=== PATIENT | female | born 1950 | race Caucasian/White ===

== ENCOUNTER 2016-12-01 12:10 | Inpatient (IN) | payer BC ==
--- NOTE | ~2016-12-01 | HP ---
History And Physical [place] [id number] [facility] [place]. [address] NAME: CLARE MORFIN : 48 STATUS : ADM IN PAT#: [id number] AGE: 65 ADM/REG DATE : 12/01/16 MR#: [id number] REPORT SERV DATE: 12/01/16 DICTATED BY: DORA CAMACHO IV DATE: 12/01/16 REPORT STATUS : Draft TRANSCRIBED BY: MODHernandez DATE: 12/01/16 DATE OF ADMISSION: 12/01/2016 REASON FOR ADMISSION: 1. Acute hypercapnic respiratory failure. 2. COPD exacerbation. 3. Bronchiectasis. 4. Pneumonia. 5. Mediastinal adenopathy. HISTORY OF PRESENT ILLNESS: History was obtained from the records and from the patient. Ms. Morfin is a 65-year-old female with a history of oxygen dependent COPD; paroxysmal atrial fibrillation; obstructive sleep apnea, on CPAP; tobacco dependency; hypothyroidism; anxiety disorder; and mediastinal adenopathy on previous chest CT scan, who presents with one week of increased shortness of breath with cough productive of yellowish phlegm, three weeks of headaches, and one month of hoarseness. The patient previously was followed by Dr. Desai in [place], more recently by Dr. Mejia. She has oxygen-dependent COPD with previous pulmonary function studies noting mixed disease, though with no specific FEV1's were provided. She is on 3 L supplemental oxygen chronically with exercise tolerance of less than 50 feet. Her exercise tolerance has worsened over the last few months. She has noted hoarseness, which has progressed over the last month without symptoms of reflux disease. There is no dysphagia. She has developed a headache, worse in the morning. Over the last three weeks, it waxes and wanes. She has noted increased shortness of breath and cough productive of yellowish phlegm over the last week despite compliance with her bronchodilator medications. She has nebulizers, she uses four times a day and Breo Ellipta, which she uses daily. Because of progressive symptoms, she sought evaluation in the emergency room, where she was found to be in moderate respiratory distress with hypercapnia. She was placed on BiPAP with symptomatic improvement. She denies fevers, chills, sweats, or hemoptysis. We asked to assist in her care. The patient carries a diagnosis of obstructive sleep apnea, which is reportedly mild. She is currently on CPAP at 11, however, previous titration noted adequacy at 8, which was increased because of persistent hypoxemia. PULMONARY HISTORY: Remarkable for childhood asthma as well as adult COPD. She has had pneumonia in the past. She had a 40-pack year smoking history, currently a half a pack cigarettes a day. 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 She is reportedly up to date on her immunizations. PAST MEDICAL HISTORY: 1. Oxygen-dependent COPD. 2. Paroxysmal atrial fibrillation. 3. Obstructive sleep apnea, on CPAP. 4. Tobacco dependency. 5. Hypothyroidism. 6. Anxiety disorder. 7. Mediastinal adenopathy. History And Physical [address] [address] NAME: CLARE MORFIN : [birth year] STATUS : ADM IN [facility]ED WITH [facility]#: [id number] AGE: 65 ADM/REG DATE : 12/01/16 MR#: [id number] REPORT SERV DATE: 12/01/16 DICTATED BY: DORA CAMACHO IV DATE: 12/01/16 REPORT STATUS : Draft TRANSCRIBED BY: ELENA DATE: 12/01/16 8. Left basilar bronchiectasis, on previous CT scans from [facility]. SURGERIES: 1. Bilateral tubal ligation. 2. Hysterectomy. 3. Cataract surgery. 4. Partial thyroidectomy. ALLERGIES: LISTED ARE CLAVULANIC FROM AUGMENTIN AND EPHEDRINE. OUTPATIENT MEDICATIONS: Include Tylenol p.r.n.; ProAir and Proventil nebulizer as needed; vitamin C and vitamin D daily; doxycycline 100 mg twice a day, which she just started; flecainide 100 mg q.12 hours; Breo Ellipta 100 daily; Lasix 40 mg daily; Synthroid 112 mcg daily; Lopressor 100 mg twice a day; Centrum daily; potassium daily; Shaun-24 600 mg at bedtime; Jantoven 2 mg daily; Cardizem 90 mg q.12 hours. SOCIAL HISTORY: Remarkable for the tobacco use as above. She denies alcohol or illicit drug use. She is , has three children. FAMILY HISTORY: Remarkable for father who was an alcoholic. Mother who had ovarian carcinoma. One sister with mesothelioma, two other sisters with lung cancer, and one with COPD. REVIEW OF SYSTEMS: 14 systems reviewed. Pertinent positives as noted above. PHYSICAL EXAMINATION: GENERAL: This is an obese, pleasant, elderly female, on BiPAP. VITAL SIGNS: Temperature is 98, respiratory rate is 20, saturations are 98% on BiPAP, blood pressure 115/64, and pulse is 80. HEENT: Patient is normocephalic, atraumatic. Extraocular movements are intact. Pupils react to light. Sclerae and conjunctivae normal. She has upper dentures with two teeth on her lower jaw with gingival disease. She has a Mallampati III to IV airway with narrowing of the posterior pharyngeal space. NECK: Without any palpable lymphadenopathy or thyromegaly. CHEST: The patient has had decreased breath sounds symmetrically. There is a prolonged expiratory phase. No crackles, wheezes, or rhonchi are noted. CARDIOVASCULAR: Jugular venous pulsations are difficult to elicit. She has 1+ carotid upstrokes. No obvious bruit. She has a distant regular S1, S2 with no clear murmur, S3, S4. Peripheral pulses are diminished. ABDOMEN: Obese, soft, and nontender. There are hypoactive bowel sounds. There is no palpable hepatosplenomegaly or masses. EXTREMITIES: Demonstrate no cyanosis, clubbing, edema, or palpable cords. NEUROLOGIC: The patient is able to move all extremities. Strength is 5/5 and sensation intact to light touch. Of note, she does have the hoarseness when speaking to her as noted. LABORATORY DATA: Chest x-ray demonstrates a rotated film. There is a left AP window mass History And Physical [address] [address] NAME: CLARE MORFIN : 48 STATUS : ADM IN [facility]ED WITH [facility]#: [id number] AGE: 65 ADM/REG DATE : 12/01/16 MR#: [id number] REPORT SERV DATE: 12/01/16 DICTATED BY: DORA CAMACHO IV DATE: 12/01/16 REPORT STATUS : Draft TRANSCRIBED BY: ELENA DATE: 12/01/16 noted on chest radiograph. This correlates with enlarging lymph node noted on a February to June CT scan. There was a bronchiectasis on the previous CT scans with an infiltrate at the right base, which is new compared to previous studies. Chemistry: Sodium 141, potassium 4.1, chloride 99, bicarb 33, BUN 16, creatinine 0.86, glucose of 131, calcium is 9.3, and albumin is 2.7. Liver panel is otherwise unremarkable. Initial blood gas was pH 7.31, pCO2 of 60, PO2 of 56. Repeat blood gas on BiPAP, pH 7.42, pCO2 of 47, PO2 of 109. CBC: Hemoglobin 14.9, hematocrit 46.6, platelet count was 337,000, white cell count 24.6. No INR's have been obtained. The flu screen was negative. ASSESSMENT AND PLAN: 1. Respiratory. Concern about malignancy with her chest radiograph, her headache, and hoarseness. Solu-Medrol given 40 mg twice a day. Nebulizers will be given with Brovana and Pulmicort both twice a day, with unit dose Brovana and Pulmicort 1 mg; DuoNebs will be given q.4 hours. BiPAP will be adjusted to 15/7, which is near her previous settings with a rate of 10. She will use it at night and with breaks during the day as tolerated. The patient has bronchiectasis, which will require adjustments of her antibiotics. Theophylline level be obtained, though held. 2. Infectious Disease. With bronchiectasis, will change the cefepime 1 g q.6 hours. With the flecainide, we will continue the doxycycline 1 mg twice a day to cover atypicals. Urine antigen will be sent for Legionella as well as Pneumococcus. Sputum was sent for Gram stain and culture. 3. Hematologic. We will continue the Coumadin. Check an INR, pharmacy to adjust. Hemoglobin and hematocrit are adequate. 4. Neurologic. Concern about headache with metastatic disease. Head CT scan will be obtained with contrast since we are going to obtain a CT scan of the chest as well. Thiamine will be given 200 mg daily. We will continue the multivitamins. 5. Endocrinologic. Synthroid will be continued. Thyroid functions will be obtained. Insulin sliding scale has been ordered. 6. Cardiovascular. We will decrease the Lopressor dose to 50 mg twice a day. Continue the flecainide. Hold diltiazem for now and hold the Lasix. She will be given gentle hydration at 40 mL an hour with LR. 7. Gastrointestinal. Cardiac diet has been ordered. Protonix to be given for gastrointestinal prophylaxis 40 mg daily. 8. Renal. We will check magnesium and phosphate levels. Electrolyte replacement protocol ordered. 9. Social. Discussed the my current findings in impression. The patient understands she has severe chronic obstructive pulmonary disease. We discussed her wishes if she would decompensate. She wishes to be a DNR. The order has been provided. The patient will be admitted to the CCU under the arc welder service. ANGEL/ELENA Dora Camacho IV, M.D. History And Physical [address] [address] NAME: CLARE MORFIN : 48 STATUS : ADM IN [facility] WITH [facility]#: [id number] AGE: 65 ADM/REG DATE : 12/01/16 MR#: [id number] REPORT SERV DATE: 12/01/16 DICTATED BY: DORA CAMACHO IV DATE: 12/01/16 REPORT STATUS : Draft TRANSCRIBED BY: ELENA DATE: 12/01/16 / [id number] CC: Nay Arreaga IV, MD
--- NOTE | ~2016-12-01 | HP ---
History And Physical [address] [place]. [place]. [address] NAME: CLARE PIRES : 48 STATUS : ADM IN PAT#: [id number] AGE: 65 ADM/REG DATE : 12/01/16 MR#: [id number] REPORT SERV DATE: 12/01/16 DICTATED BY: DORA CAMACHO IV DATE: 12/01/16 REPORT STATUS : Draft TRANSCRIBED BY: MODHernandez DATE: 12/01/16 DATE OF ADMISSION: 12/01/2016 ADDENDUM: TIME SPENT: Critical care time seen is 1425 hours to 1520 hours for 55 minutes of critical care time. ANGEL/ELENA Dora Camacho IV, M.D. / [id number] CC: Nay Arreaga IV, MD
--- NOTE | ~2016-12-01 | DS ---
Discharge Summary [facility] [address] [place]. [address] NAME: CLARE PIRES : 48 STATUS : DIS IN PAT#: [id number] AGE: 65 ADM/REG DATE : 12/01/16 MR#: [id number] REPORT SERV DATE: 12/10/16 DICTATED BY: SÁNCHEZ RUCKER DATE: 12/06/16 REPORT STATUS : Draft TRANSCRIBED BY: MODHernandez DATE: 12/06/16 ADMISSION DATE: 12/01/2016 DISCHARGE DATE: 12/06/2016 REASON FOR ADMISSION: This is a 65-year-old female with a history of COPD and bronchiectasis that was admitted with acute hypercapnic respiratory failure requiring admission to the ICU and BiPAP therapy. DISCHARGE DIAGNOSES: 1. 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 2. Acute on chronic hypoxemic and hypercapnic respiratory failure and chronic obstructive pulmonary disease exacerbation. 3. Pneumonia with history of bronchiectasis. 4. Obstructive sleep apnea, on CPAP. 5. Hypertension. 6. Paroxysmal atrial fibrillation with chronic Coumadin use. 7. Hypothyroid. 8. DNR status. 9. Acute blood loss anemia status post liver biopsy. HOSPITAL COURSE: 1. The patient admitted with acute hypercapnic respiratory failure, COPD exacerbation with a pCO2 of 60, admitted to ICU on BiPAP. The patient would have a CT of the chest performed which would show progressing mediastinal bilateral hilar adenopathy and high suspicion for malignancy, central lung mass or ghazala mass, inferior right hilum with diffuse reticular nodule infiltrates of the right lower lobe suspicious for interstitial spread of malignancy, also would show multifocal hypodense solid appearing liver lesions suspicious for liver metastasis. The patient would be seen by Oncology, and based on appearance, we are predicting small-cell lung cancer. The patient would have a CT-guided biopsy of the liver, and preliminary findings were suggestive of small cell carcinoma. The patient was able to be weaned off BiPAP and back to nasal cannula and was sent out to the floor. After the liver biopsy, Oncology had long discussion with the patient. The patient did not want treatment for her cancer, understood prognosis, had already declared to be DNR code status, and after discussion with Oncology decided to go home with Hospice Services. 2. Pneumonia with bronchiectasis: The patient initially was placed on IV cefepime and oral doxycycline. She has been transitioned to oral Omnicef and will need to be on that through 12/07/2016. Her breathing status is pretty much back to baseline and she is on 2 L nasal cannula. Already has oxygen at home. 3. Paroxysmal atrial fibrillation, on chronic Coumadin. The patient was held on Coumadin until INR less than 1 for her liver biopsy. Given her metastatic cancer and hospice referral, we will discontinue any further Coumadin use. 4. Acute blood loss anemia status post biopsy. The patient's hemoglobin dropped from 13 to 8.8 the day after procedure. We would recheck that afternoon and it had dropped to 8.3 and then rechecked again this morning, and it was down to 7.6, so we have given her a unit of packed red blood cells. She is non-symptomatic for any sort of Discharge Summary [address] [place]. [address] NAME: CLARE PIRES : 48 STATUS : DIS IN PAT#: [id number] AGE: 65 ADM/REG DATE : 12/01/16 MR#: [id number] REPORT SERV DATE: 12/10/16 DICTATED BY: SÁNCHEZ RUCKER DATE: 12/06/16 REPORT STATUS : Draft TRANSCRIBED BY: ELENA DATE: 12/06/16 intraabdominal acute bleed, so just giving the patient a unit of blood to give her some buffer in case she was to have anymore ooze there. She will be going home with Hospice Services. DISCHARGE CONDITION: Stable. DISCHARGE MEDICATIONS: 1. Synthroid 112 mcg p.o. daily. 2. Lopressor 50 mg p.o. b.i.d. 3. Breo Ellipta 100/25 mcg one puff inhaled daily. 4. Potassium chloride 20 mEq p.o. every two days. 5. Lasix 40 mg p.o. every two days. 6. Flecainide 100 mg p.o. b.i.d. 7. Theophylline 600 mg p.o. q.h.s. 8. Albuterol MDI p.r.n. 9. Albuterol nebs q.4 hours p.r.n. 10.Diltiazem 90 mg p.o. b.i.d. 11.Omnicef 300 mg p.o. b.i.d. through 12/07/2016. DISCHARGE PLAN: The patient is discharged home with home hospice, after blood transfusion complete, hospice to admit the patient at home residence. ADA/MODL Sánchez Rucker APN / [id number] CC: Nay Willis MD Nathan Mull IV, M.D. [facility]
--- NOTE | ~2016-12-01 | CN ---
Consultation Report [facility] [address] [place]. [address] NAME: CLAER MORFIN : 48 STATUS : ADM IN PAT#: [id number] AGE: 65 ADM/REG DATE : 12/01/16 MR#: [id number] REPORT SERV DATE: 12/03/16 DICTATED BY: CESARIO ROSE DATE: 12/03/16 REPORT STATUS : Draft TRANSCRIBED BY: MODL DATE: 12/03/16 CONSULTATION DATE OF CONSULTATION: 12/02/2016 REASON FOR CONSULTATION: Bulky mediastinal adenopathy likely cancer. HISTORY OF PRESENT ILLNESS: Ms. Jo Morfin is a 65-year-old woman with oxygen-dependent COPD, paroxysmal AFib, obstructive sleep apnea, tobacco dependency, hypothyroidism, anxiety disorder. She is found to have mediastinal disease back in the summer 2015. Pattern was in the usual distribution. She had a followup three months later showing a slight increase. Dr. Desai was following her previously. 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 The patient reports her breathing significantly worsened, and she came to the emergency room and was found to have a large increase in her disease. She required CPAP initially, but has since stabilized. She had a CT scan today that showed progression of her mediastinal adenopathy and hilar adenopathy. It is a large central lung mass/right hilar mass with likely from a postobstructive process. Also patchy infiltrates in the left upper lobe as well. There were a number of small liver lesions noted, they are likely metastatic sites. CT of the brain was normal, contrasted. The patient's baseline health is pretty limited due to her significant pulmonary disease. She has smoked for 40 years, currently smoking half a pack a day. She lives in [place]. PAST MEDICAL HISTORY: Oxygen-dependent COPD, paroxysmal AFib, obstructive sleep apnea on CPAP, tobacco dependency, hypothyroidism, anxiety disorder, mediastinal adenopathy, partial thyroidectomy, cataract surgery, hysterectomy, bilateral tubal ligation. ALLERGIES: CLAVULANIC, CITRIC ACID, AUGMENTIN, AND EPHEDRINE. HOME MEDICATIONS: Tylenol, ProAir, Proventil, vitamin C, vitamin D, doxycycline, flecainide, Breo, Lasix, Synthroid, Lopressor, centrum, potassium, Shaun-Dur, Jantoven, Cardizem. SOCIAL HISTORY: Again she has had at least a 32-[id number] smoking history, currently smoking half a pack per day. She had previous pulmonary work-related exposures. She is , has three adult children. FAMILY HISTORY: Significant for her sister, who had mesothelioma. Other sister having small cell lung cancer. Another sister with lung cancer, unsure of which type. Her mother had ovarian cancer. REVIEW OF SYSTEMS: Pertinent and positive as per HPI. Negative for fevers, chills, night sweats. Negative for weight loss. Positive for severe shortness of breath, unable to sleep flat. Positive for chest wall pain. Negative for nausea, vomiting, diarrhea, hematochezia, or melena. Negative for neurologic symptoms. Consultation Report [place] [id number] [place]. [address] NAME: LCARE MORFIN : 48 STATUS : ADM IN [facility]#: [id number] AGE: 65 ADM/REG DATE : 12/01/16 MR#: [id number] REPORT SERV DATE: 12/03/16 DICTATED BY: CESARIO ROSE DATE: 12/03/16 REPORT STATUS : Draft TRANSCRIBED BY: ELENA DATE: 12/03/16 PHYSICAL EXAMINATION: VITAL SIGNS: Temperature 98.1, heart rate of 88, BP 145/88. HEENT: Pupils equal, round, reactive. No oral lesions or cervical adenopathy. LUNGS: Show bilateral wheezing with some bronchial breath sounds in both lower lobes. CARDIAC: Regular rate and rhythm. Normal S1, S2. ABDOMEN: Soft, nontender, nondistended. EXTREMITIES: No clubbing. No cyanosis. No edema. NEUROLOGIC: She is alert, oriented, fairly good historian. Follows all discussion very clearly. PSYCHIATRIC: Appears very calm and is taking in the information very readily. LABORATORY DATA: Her creatinine is 0.8, calcium of 8.4, an albumin of 2.1. B12 is normal. Blood analysis now show a mild increase in her white count, post steroid, hemoglobin 11.4. CT scan was personally reviewed and I reviewed her CT chest with the patient and discussed with Dr. Camacho, she had a bulky mediastinal adenopathy as well as multiple hepatic lesions. ASSESSMENT AND PLAN: Clare Morfin is a 65-year-old. I think she likely has a small cell lung cancer spreading to the liver bed, of course a biopsy is needed for this. I reviewed poor prognosis with small cell in general. It is somewhat unusual case given that she had a fairly stable mediastinal appearance for three months. So this made surprises with the biopsy. The patient will need a CT-guided biopsy, requested to do this by Radiology once her INR is less than 1.5. We discussed briefly treatment and plan. She will need palliative chemotherapy. She is unsure whether she will except this or not. We will have further discussions once we know the histology. I will plan an outpatient PET scan as well. DBD/MODL Cesario Rose M.D. / [id number] CC: Nay Arreaga IV, MD
[~2016-12-01 12:10] MED LIST: CARDCD180 PO; CELEXA10 PO; JANTOVEN5 MG PO; L40 PO; LEVAQUIN5T PO; LOP100 PO; MULTIVITAMI1 PO; OS500+D PO; PROAIR HFA INH; PROVENTSOL INH; RYTHMOL150 MG PO; SYMBICORT 160/41 INH INH; SYN112 PO; THEO24300 PO; VITAMIN D1000 UNI1 PO; VITC500 PO
[2016-12-01 12:27] LABS: ALLENS TEST Pos; BE (BASE EXCESS) 1.5 MEQ/L (0 +/- 2.5); CARBOXYHEMOGLOBIN 2.7 % (0-3); DEVICE NC; HCO3 (ACTUAL BICARBONATE) 29.4 MEQ/L (23-27); HEMOBLOGIN CONTENT 14.6 G/DL (12-16); INSTRUMENT SERIAL # 8087; O2 CONTENT 17.5 VOL% (18-24); PCO2 (CO2 TENSION) 60 MMHG (35-45); PO2 (O2 TENSION) 56 MMHG (79-93); SAMPLE Arterial; pH 7.31 (7.37-7.43)
[2016-12-01 12:36] LABS: BASOPHILS 0 %; BASOPHILS ABSOLUTE 0.01 10/3/uL (0.0-0.16); EOSINOPHILS 0 %; IMMATURE GRANULOCYTES 0.4 %; LYMPHOCYTES 3.7 %; MEAN CORPUSCULAR HEMOGLOB 31.2 pg (26.0-34.0); MEAN CORPUSCULAR VOLUME 97.7 fL (80-100); MEAN PLATELET VOLUME 9.1 fL (9.2-13.0); MONOCYTES 4.3 %; MONOCYTES ABSOLUTE 1.05 10/3/uL (0.21-1.20); NEUTROPHILS 91.6 %; NEUTROPHILS ABSOLUTE 22.56 10/3/uL (2.02-8.40); RBC DISTRIBUTION WIDTH 16.3 % (12.0-16.0)
[2016-12-01 12:38] LABS: HEMATOCRIT 46.6 % (36.0-48.0); HEMOGLOBIN 14.9 g/dL (12.0-16.0); IMMATURE GRANULOCYTES ABSOLUTE 0.11 10/3/uL (0.0-0.11); MANUAL DIFF NO %; PLATELET COUNT 337 10/3/uL (150-400); RED CELL COUNT 4.77 10/6/uL (4.0-5.6); WHITE BLOOD CELLS 24.6 10/3/uL (4.5-10.5)
[2016-12-01 12:52] LABS: A/G RATIO 0.5 (0.7-1.9); ALBUMIN 2.7 G/DL (3.5-5.0); ALKALINE PHOSPHATASE 102 U/L (45-117); BUN (BLOOD UREA NITROGEN) 16 MG/DL (6-23); CALCIUM, SERUM 9.3 MG/DL (8.5-10.4); CHLORIDE, SERUM 99 MMOL/L (96-112); CO2 (CARBON DIOXIDE) 33 MMOL/L (24-34); CREATININE 0.86 MG/DL (0.55-1.02); GFR AFRICAN AMERICAN 82 ML/MIN (>=60); GFR NON AFRICAN AMERICAN 70 ML/MIN (>=60); GLOBULIN 5.3 G/DL (2.5-4.1); GLUCOSE, SERUM 131 MG/DL (60-99); POTASSIUM, SERUM 4.1 MMOL/L (3.5-5.3); SGOT(AST) 13 U/L (5-40); SGPT(ALT) 17 U/L (5-65); SODIUM, SERUM 141 MMOL/L (135-148); TOTAL BILIRUBIN 0.3 MG/DL (0-1.2)
[2016-12-01 13:03] LABS: BAND NEUTROPHILS 1 %; ER DIFF TAT 0 Hrs 31 Mins; LYMPHOCYTES 3 %; LYMPHOCYTES ABSOLUTE (CALC) 0.74 10/3/uL (0.67-4.30); MONOCYTES 13 %; NEUTROPHILS ABSOLUTE (CALC) 20.66 10/3/uL (2.02-8.40); SEGMENTED NEUTROPHIL (0) 83 %; TOTAL NUCLEATED CELLS 100
[2016-12-01 13:03] LABS: INFLUENZA A SCREEN NEGATIVE (NEGATIVE); INFLUENZA B SCREEN NEGATIVE (NEGATIVE)
[2016-12-01 13:04] LABS: PLATELET ESTIMATE ADQ (ADEQUATE); RBC MORPHOLOGY NORM (NORMAL)
[2016-12-01 13:55] LABS: ALLENS TEST Pos; BE (BASE EXCESS) 4.6 MEQ/L (0 +/- 2.5); BIPAP 18/5 cm.H2O; CARBOXYHEMOGLOBIN 2.8 % (0-3); HEMOBLOGIN CONTENT 13.9 G/DL (12-16); INSTRUMENT SERIAL # 8087; METHEMOGLOBIN 0.1 % (0-3); O2 CONTENT 18.8 VOL% (18-24); PCO2 (CO2 TENSION) 47 MMHG (35-45); PO2 (O2 TENSION) 109 MMHG (79-93); SAMPLE Arterial; pH 7.42 (7.37-7.43)
[2016-12-01] MEDS ORDERED: LOP100 PO (14:15)
[2016-12-01] MEDS ORDERED: SYN112 PO (14:15)
[2016-12-01] MEDS ORDERED: KLOR-CON20 MEQ PO (14:16)
[2016-12-01] MEDS ORDERED: BREO ELLIPTA INH (14:16)
[2016-12-01] MEDS ORDERED: L40 PO (14:16)
[2016-12-01] MEDS ORDERED: THEO24300 PO (14:17)
[2016-12-01] MEDS ORDERED: FLECAINIDE100 MG PO (14:17)
[2016-12-01] MEDS ORDERED: PROAIR HFA INH (14:18)
[2016-12-01] MEDS ORDERED: ALBUTEROL5 INH (14:19)
[2016-12-01] MEDS ORDERED: JANTOVEN2 MG PO (14:19)
[2016-12-01] MEDS ORDERED: CARD90 PO (14:20)
[2016-12-01] MEDS ORDERED: VITC500 PO (14:21)
[2016-12-01] MEDS ORDERED: CENTRUM PO (14:21)
[2016-12-01] MEDS ORDERED: VITAMIN D1000 UNI1 PO (14:22)
[2016-12-01] MEDS ORDERED: T PO (14:24)
[2016-12-01] MEDS ORDERED: DORYX100 MG PO (14:26)
[2016-12-01 16:22] LABS: INTERNATIONAL NORMAL RATI 2.7 UNITS (-); PROTIME (NOT ORD) 28.5 SEC (12.0-14.5)
[2016-12-01 19:27] LABS: FREE T4 1.45 NG/DL (0.76-1.46); PHOSPHORUS, SERUM 2.9 MG/DL (2.5-4.5); ULTRASENSITIVE TSH 0.868 MCIU/ML (0.358-3.740)
[2016-12-01 19:29] LABS: FOLATE 27.7 NG/ML (>5.2)
[2016-12-01 20:26] LABS: PROCALCITONIN 0.83 ng/mL (<0.5)
[2016-12-02 03:51] LABS: BE (BASE EXCESS) 7.1 MEQ/L (0 +/- 2.5); BIPAP 15/5 cm.H2O; CARBOXYHEMOGLOBIN 0.1 % (0-3); HCO3 (ACTUAL BICARBONATE) 33.2 MEQ/L (23-27); HEMOBLOGIN CONTENT 12.8 G/DL (12-16); INSTRUMENT SERIAL # 35151; METHEMOGLOBIN 0.3 % (0-3); O2 CONTENT 16.9 VOL% (18-24); PCO2 (CO2 TENSION) 54 MMHG (35-45); PO2 (O2 TENSION) 73 MMHG (79-93); SAMPLE Arterial; pH 7.41 (7.37-7.43)
[2016-12-02 04:25] LABS: BASOPHILS 0.1 %; BASOPHILS ABSOLUTE 0.01 10/3/uL (0.0-0.16); EOSINOPHILS 0 %; HEMOGLOBIN 12.4 g/dL (12.0-16.0); IMMATURE GRANULOCYTES 0.5 %; IMMATURE GRANULOCYTES ABSOLUTE 0.09 10/3/uL (0.0-0.11); LYMPHOCYTES 4.5 %; LYMPHOCYTES ABSOLUTE 0.86 10/3/uL (0.67-4.30); MEAN CORPUS HGB CONC 32.1 g/dL (32.0-36.0); MEAN CORPUSCULAR HEMOGLOB 31.4 pg (26.0-34.0); MEAN CORPUSCULAR VOLUME 97.7 fL (80-100); MEAN PLATELET VOLUME 9.2 fL (9.2-13.0); MONOCYTES 3.4 %; MONOCYTES ABSOLUTE 0.65 10/3/uL (0.21-1.20); NEUTROPHILS 91.5 %; NEUTROPHILS ABSOLUTE 17.49 10/3/uL (2.02-8.40); PLATELET COUNT 285 10/3/uL (150-400); RBC DISTRIBUTION WIDTH 16.5 % (12.0-16.0); RED CELL COUNT 3.95 10/6/uL (4.0-5.6); WHITE BLOOD CELLS 19.1 10/3/uL (4.5-10.5)
[2016-12-02 04:27] LABS: HEMATOCRIT 38.6 % (36.0-48.0); MANUAL DIFF NO %
[2016-12-02 04:30] LABS: INTERNATIONAL NORMAL RATI 3.6 UNITS (-)
[2016-12-02 04:31] LABS: PROTIME (NOT ORD) 35.5 SEC (12.0-14.5)
[2016-12-02 04:45] LABS: ALBUMIN 2.2 G/DL (3.5-5.0); CALCIUM, SERUM 8.8 MG/DL (8.5-10.4); CHLORIDE, SERUM 105 MMOL/L (96-112); CO2 (CARBON DIOXIDE) 32 MMOL/L (24-34); CREATININE 0.84 MG/DL (0.55-1.02); GFR AFRICAN AMERICAN 84 ML/MIN (>=60); GFR NON AFRICAN AMERICAN 72 ML/MIN (>=60); GLUCOSE, SERUM 127 MG/DL (60-99); POTASSIUM, SERUM 3.9 MMOL/L (3.5-5.3); SODIUM, SERUM 145 MMOL/L (135-148)
[2016-12-02 04:49] LABS: BUN (BLOOD UREA NITROGEN) 23 MG/DL (6-23); PHOSPHORUS, SERUM 1.9 MG/DL (2.5-4.5)
[2016-12-02 10:34] LABS: ASCORBIC ACID (UR NOT ORDER) NEG (NEG); BILIRUBIN, URINE NEGATIVE (NEG); KETONE, URINE NEGATIVE (NEG); LEUKOCYTE ESTERASE(NOT OR LARGE (NEG)
[2016-12-02 10:37] LABS: WBC (NOT ORDERED) (RFLEX) > 182 (0-5)
[2016-12-02 12:11] LABS: PHOSPHORUS, SERUM 3.2 MG/DL (2.5-4.5); POTASSIUM, SERUM 4.1 MMOL/L (3.5-5.3)
[2016-12-03 04:29] LABS: HEMOGLOBIN 11.4 g/dL (12.0-16.0); MANUAL DIFF YES %; MEAN CORPUS HGB CONC 31.7 g/dL (32.0-36.0); MEAN CORPUSCULAR HEMOGLOB 31.1 pg (26.0-34.0); MEAN CORPUSCULAR VOLUME 98.4 fL (80-100); MEAN PLATELET VOLUME 9.3 fL (9.2-13.0); PLATELET COUNT 337 10/3/uL (150-400); RBC DISTRIBUTION WIDTH 16.8 % (12.0-16.0); RED CELL COUNT 3.66 10/6/uL (4.0-5.6); WHITE BLOOD CELLS 24.6 10/3/uL (4.5-10.5)
[2016-12-03 04:32] LABS: INTERNATIONAL NORMAL RATI 2.7 UNITS (-); PROTIME (NOT ORD) 28.2 SEC (12.0-14.5)
[2016-12-03 04:34] LABS: ALBUMIN 2.1 G/DL (3.5-5.0); BUN (BLOOD UREA NITROGEN) 28 MG/DL (6-23); CALCIUM, SERUM 8.4 MG/DL (8.5-10.4); CHLORIDE, SERUM 103 MMOL/L (96-112); CO2 (CARBON DIOXIDE) 36 MMOL/L (24-34); CREATININE 0.78 MG/DL (0.55-1.02); GFR AFRICAN AMERICAN 92 ML/MIN (>=60); GFR NON AFRICAN AMERICAN 79 ML/MIN (>=60); GLUCOSE, SERUM 117 MG/DL (60-99); POTASSIUM, SERUM 4.1 MMOL/L (3.5-5.3); SODIUM, SERUM 144 MMOL/L (135-148)
[2016-12-03 05:03] LABS: SEGMENTED NEUTROPHIL (0) 87 %; TOTAL NUCLEATED CELLS 100
[2016-12-03 05:04] LABS: BAND NEUTROPHILS 8 %; IMMATURE GRANS ABSOLUTE (CALC) 0.25 10/3/uL (0.0-0.11); LYMPHOCYTES 2 %; LYMPHOCYTES ABSOLUTE (CALC) 0.49 10/3/uL (0.67-4.30); MONOCYTES 2 %; MONOCYTES ABSOLUTE (CALC) 0.49 10/3/uL (0.21-1.20); MYELOCYTES 1 %; NEUTROPHILS ABSOLUTE (CALC) 23.37 10/3/uL (2.02-8.40); PLATELET ESTIMATE ADQ (ADEQUATE)
[2016-12-03 05:05] LABS: RBC MORPHOLOGY NORM (NORMAL)
[2016-12-04 05:27] LABS: HEMOGLOBIN 13.1 g/dL (12.0-16.0); MEAN CORPUS HGB CONC 31.6 g/dL (32.0-36.0); MEAN CORPUSCULAR HEMOGLOB 31.4 pg (26.0-34.0); MEAN CORPUSCULAR VOLUME 99.3 fL (80-100); PLATELET COUNT 337 10/3/uL (150-400); RBC DISTRIBUTION WIDTH 16.6 % (12.0-16.0); RED CELL COUNT 4.17 10/6/uL (4.0-5.6); WHITE BLOOD CELLS 20.3 10/3/uL (4.5-10.5)
[2016-12-04 05:28] LABS: HEMATOCRIT 41.4 % (36.0-48.0); MANUAL DIFF YES %
[2016-12-04 05:30] LABS: INTERNATIONAL NORMAL RATI 1.5 UNITS (-)
[2016-12-04 05:31] LABS: PROTIME (NOT ORD) 17.9 SEC (12.0-14.5)
[2016-12-04 05:41] LABS: BUN (BLOOD UREA NITROGEN) 27 MG/DL (6-23); CHLORIDE, SERUM 103 MMOL/L (96-112); CO2 (CARBON DIOXIDE) 33 MMOL/L (24-34); CREATININE 0.81 MG/DL (0.55-1.02); GFR AFRICAN AMERICAN 88 ML/MIN (>=60); GFR NON AFRICAN AMERICAN 76 ML/MIN (>=60); GLUCOSE, SERUM 100 MG/DL (60-99); PHOSPHORUS, SERUM 3.2 MG/DL (2.5-4.5); POTASSIUM, SERUM 3.9 MMOL/L (3.5-5.3); SODIUM, SERUM 145 MMOL/L (135-148)
[2016-12-04 05:54] LABS: BAND NEUTROPHILS 5 %; LYMPHOCYTES 8 %; LYMPHOCYTES ABSOLUTE (CALC) 1.62 10/3/uL (0.67-4.30); MONOCYTES 3 %; MONOCYTES ABSOLUTE (CALC) 0.61 10/3/uL (0.21-1.20); NEUTROPHILS ABSOLUTE (CALC) 18.07 10/3/uL (2.02-8.40); PLATELET ESTIMATE ADQ (ADEQUATE); RBC MORPHOLOGY NORM (NORMAL); SEGMENTED NEUTROPHIL (0) 84 %; TOTAL NUCLEATED CELLS 100
[2016-12-04 06:02] LABS: ALBUMIN 2.6 G/DL (3.5-5.0)
[2016-12-05 04:54] LABS: HEMATOCRIT 27.4 % (36.0-48.0); HEMOGLOBIN 8.8 g/dL (12.0-16.0); MANUAL DIFF YES %; MEAN CORPUS HGB CONC 32.1 g/dL (32.0-36.0); MEAN CORPUSCULAR HEMOGLOB 31.2 pg (26.0-34.0); MEAN CORPUSCULAR VOLUME 97.2 fL (80-100); PLATELET COUNT 297 10/3/uL (150-400); RBC DISTRIBUTION WIDTH 16.3 % (12.0-16.0); RED CELL COUNT 2.82 10/6/uL (4.0-5.6); WHITE BLOOD CELLS 20.5 10/3/uL (4.5-10.5)
[2016-12-05 04:57] LABS: INTERNATIONAL NORMAL RATI 1.4 UNITS (-); PROTIME (NOT ORD) 16.7 SEC (12.0-14.5)
[2016-12-05 04:58] LABS: CHLORIDE, SERUM 103 MMOL/L (96-112); CO2 (CARBON DIOXIDE) 33 MMOL/L (24-34); CREATININE 0.81 MG/DL (0.55-1.02); GFR AFRICAN AMERICAN 88 ML/MIN (>=60); GFR NON AFRICAN AMERICAN 76 ML/MIN (>=60); GLUCOSE, SERUM 113 MG/DL (60-99); SODIUM, SERUM 142 MMOL/L (135-148)
[2016-12-05 05:00] LABS: BUN (BLOOD UREA NITROGEN) 35 MG/DL (6-23)
[2016-12-05 05:18] LABS: BAND NEUTROPHILS 2 %; IMMATURE GRANS ABSOLUTE (CALC) 0.21 10/3/uL (0.0-0.11); LYMPHOCYTES 10 %; LYMPHOCYTES ABSOLUTE (CALC) 2.05 10/3/uL (0.67-4.30); MONOCYTES 4 %; MONOCYTES ABSOLUTE (CALC) 0.82 10/3/uL (0.21-1.20); NEUTROPHILS ABSOLUTE (CALC) 17.43 10/3/uL (2.02-8.40); NUCLEATED RED BLOOD CELLS 1 /100WBC (0); PLATELET ESTIMATE ADQ (ADEQUATE); RBC MORPHOLOGY NORM (NORMAL); SEGMENTED NEUTROPHIL (0) 84 %; TOTAL NUCLEATED CELLS 100
[2016-12-05 12:00] LABS: HEMOGLOBIN 8.3 g/dL (12.0-16.0)
[2016-12-06 06:08] LABS: HEMOGLOBIN 7.6 g/dL (12.0-16.0); MEAN CORPUSCULAR HEMOGLOB 31.3 pg (26.0-34.0); MEAN CORPUSCULAR VOLUME 94.7 fL (80-100); MEAN PLATELET VOLUME 8.4 fL (9.2-13.0); PLATELET COUNT 236 10/3/uL (150-400); RBC DISTRIBUTION WIDTH 16.4 % (12.0-16.0); RED CELL COUNT 2.43 10/6/uL (4.0-5.6); WHITE BLOOD CELLS 21.1 10/3/uL (4.5-10.5)
[2016-12-06 06:12] LABS: MANUAL DIFF YES %
[2016-12-06 06:23] LABS: CALCIUM, SERUM 8.1 MG/DL (8.5-10.4); CHLORIDE, SERUM 103 MMOL/L (96-112); CO2 (CARBON DIOXIDE) 32 MMOL/L (24-34); CREATININE 0.66 MG/DL (0.55-1.02); GFR AFRICAN AMERICAN 107 ML/MIN (>=60); GFR NON AFRICAN AMERICAN 92 ML/MIN (>=60); POTASSIUM, SERUM 4.2 MMOL/L (3.5-5.3); SODIUM, SERUM 142 MMOL/L (135-148)
[2016-12-06 06:24] LABS: BUN (BLOOD UREA NITROGEN) 31 MG/DL (6-23); GLUCOSE, SERUM 74 MG/DL (60-99)
[2016-12-06 08:05] LABS: BAND NEUTROPHILS 4 %; LYMPHOCYTES 20 %; LYMPHOCYTES ABSOLUTE (CALC) 4.22 10/3/uL (0.67-4.30); MONOCYTES 4 %; MONOCYTES ABSOLUTE (CALC) 0.84 10/3/uL (0.21-1.20); NEUTROPHILS ABSOLUTE (CALC) 16.04 10/3/uL (2.02-8.40); PLATELET ESTIMATE ADQ (ADEQUATE); RBC MORPHOLOGY NORM (NORMAL); SEGMENTED NEUTROPHIL (0) 72 %; TOTAL NUCLEATED CELLS 100
== END 2016-12-06 18:27 | disposition hospice, home (50) | DRG 180 ==
LOC: ER 12:10 → CCU 14:25 → 7NO 12-03 10:02
PROVIDERS: Emergency Medicine; Internal Medicine Critical Care Medicine; Nurse Practitioner Gerontology
PROC: 0FB23ZX Excision of Left Lobe Liver, Percutaneous Approach, Diagnostic (ICD-10-PCS; principal; 2016-12-04)
PROC: 30233N1 Transfusion of Nonautologous Red Blood Cells into Peripheral Vein, Percutaneous Approach (ICD-10-PCS; 2016-12-06)
DX: C34.12 Malignant neoplasm of upper lobe, left bronchus or lung (principal); J96.22 Acute and chronic respiratory failure with hypercapnia; J96.21 Acute and chronic respiratory failure with hypoxia; J18.9 Pneumonia, unspecified organism; C78.7 Secondary malignant neoplasm of liver and intrahepatic bile duct; Z99.81 Dependence on supplemental oxygen; I48.0 Paroxysmal atrial fibrillation; J44.1 Chronic obstructive pulmonary disease with (acute) exacerbation; R59.0 Localized enlarged lymph nodes; G47.33 Obstructive sleep apnea (adult) (pediatric); F17.210 Nicotine dependence, cigarettes, uncomplicated; E03.9 Hypothyroidism, unspecified; Z51.5 Encounter for palliative care; Z66 Do not resuscitate
CPT/HCPCS: 36415; 36600; 47000; 70460; 71010; 71260; 77012; 80048; 80053; 80069; 80198; 81001; 82607; 82746; 82805; 82962; 83735; 84100; 84132; 84145; 84439; 84443; 85014; 85018; 85025; 85610; 85730; 86850; 86900; 86901; 86920; 87040; 87070; 87086; 87205; 87449; 87641; 87804; 88307; 88333; 88341; 88342; 93005; 94640; 94660; 94667; 96374; 96375; 97161-GP; 99291; A9270-GY; C9113; J0360; J0456; J0692; J2250; J2405; J2920; J2930; J3010; P9016; Q9967